=== PATIENT | male | born 1980 | race Caucasian/White ===

== ENCOUNTER 2017-12-23 12:01 | Inpatient (IN) | payer OTHER ==
[2017-12-23] MEDS: HEMOSTATIC MATRIX SYG ZFS
[2017-12-23] MEDS: LIDOCAINE 1%/EPI 30 ML INJ
[~2017-12-23 12:01] MED LIST: LIDOCAINE 2% (SDV) 5 ML INJ; ONDANSETRON 4 MG INJ
[2017-12-23] MEDS: KETOROLAC 30 MG INJ IV ×2 (12:37→20:21)
[2017-12-23] MEDS ORDERED: GELATIN SIZE 100 SPONGE (13:08)
[2017-12-23] MEDS ORDERED: PROPOFOL 20 ML (14:15)
[2017-12-23] MEDS ORDERED: CEFAZOLIN 1 GM INJ ×2 (14:18→16:23)
[2017-12-23] MEDS ORDERED: ROCURONIUM 50 MG INJ (14:18)
[2017-12-23] MEDS ORDERED: MEPERIDINE 25 MG INJ IV ×2 (14:30→18:30)
[2017-12-23] MEDS ORDERED: HYDROmorphONE 1 MG/5 ML IV SYRINGE IV ×3 (14:30)
[2017-12-23] MEDS ORDERED: FENTAnyl 50 MCG/ML VIAL IV ×6 (14:30→18:30)
[2017-12-23] MEDS ORDERED: ONDANSETRON 4 MG INJ IV ×2 (14:30→18:30)
[2017-12-23] MEDS ORDERED: EPHEDrine SULFATE 50 MG/5 ML SYG IV ×2 (14:30→18:30)
[2017-12-23] MEDS ORDERED: OXYCODONE/ACETAMINOPHEN (5/325) TAB PO ×2 (14:30)
[2017-12-23] MEDS ORDERED: MIDAZOLAM 1 MG/ML 2 ML INJ IV ×2 (14:30→18:30)
[2017-12-23] MEDS ORDERED: DIPHENHYDRAMINE 50 MG INJ IV ×2 (14:30→18:30)
[2017-12-23] MEDS ORDERED: hydrALAzine 20 MG INJ IV ×2 (14:30→18:30)
[2017-12-23] MEDS ORDERED: METOCLOPRAMIDE 10 MG INJ IV ×2 (14:30→18:30)
[2017-12-23] MEDS ORDERED: LABETALOL HCL 20MG INJ IV ×2 (14:30→18:30)
[2017-12-23] MEDS ORDERED: ALBUTEROL 0.083% (NEB) 2.5 MG/3 ML AMP HHN ×2 (14:30→18:30)
[2017-12-23] MEDS ORDERED: DEXAMETHASONE 4 MG/ML 1 ML INJ (16:15)
[2017-12-23] MEDS ORDERED: MEPERIDINE 100 MG INJ (16:22)
[2017-12-23] MEDS ORDERED: LABETALOL HCL 20MG INJ (16:36)
[2017-12-23] MEDS: THROMBIN 5000 UNIT VIAL (16:56)
[2017-12-23] MEDS: POLYMYXIN/BACITRACIN 1L IRRIG (16:56)
[2017-12-23] MEDS: HYDROmorphONE 0.5 MG/0.5 ML SYG IV ×3 (18:29→21:02)
[2017-12-23] MEDS ORDERED: NALOXONE (0.4 MG/ML) INJ IV (18:30)
[2017-12-23] MEDS ORDERED: KETOROLAC 30 MG INJ IV (18:30)
[2017-12-23] MEDS ORDERED: NACL 0.9% 3 ML SYG IV (18:30)
[2017-12-23] MEDS ORDERED: HYDROmorphONE 0.5 MG/0.5 ML SYG IV ×2 (18:30)
[2017-12-23] MEDS: LORAZEPAM 2 MG INJ IV (18:47)
[2017-12-23] MEDS: CEFAZOLIN 1 GM/50 ML (PMX) 50 ML IVPB ×2 (20:00→23:11)
[2017-12-23] MEDS: DOCUSATE SODIUM 100 MG CAP PO ×2 (20:22→21:02)
[2017-12-23] MEDS: NS + KCL 20 MEQ 1,000 ML IV (22:00)
[2017-12-23] MEDS: HYDROCODONE/APAP (5/325) TAB PO ×2 (23:10→23:11)
[2017-12-24] MEDS: HYDROmorphONE 0.5 MG/0.5 ML SYG IV ×4 (00:27→07:20)
[2017-12-24] MEDS: HYDROCODONE/APAP (5/325) TAB PO ×2 (03:24→06:56)
[2017-12-24 05:21] LABS: HEMATOCRIT 38.7 % (42.0-52.0); HEMOGLOBIN 13.2 g/dl (14.0-18.0)
[2017-12-24] MEDS: NS + KCL 20 MEQ 1,000 ML IV (05:21)
[2017-12-24] MEDS: CEFAZOLIN 1 GM/50 ML (PMX) 50 ML IVPB ×2 (05:21→12:43)
[2017-12-24 05:42] LABS: ANION GAP 20 (8-16); BLOOD UREA NITROGEN 10 mg/dl (7-20); CALCIUM 8.7 mg/dl (8.4-10.2); CARBON DIOXIDE 21 mmol/L (21-31); CHLORIDE 107 mmol/L (97-110); CREATININE 0.76 mg/dl (0.61-1.24); GLUCOSE 153 mg/dl (70-220); POTASSIUM 4.6 mmol/L (3.5-5.1); SODIUM 143 mmol/L (135-144)
[2017-12-24] MEDS: DOCUSATE SODIUM 100 MG CAP PO ×2 (09:19→20:58)
[2017-12-24] MEDS: CALCIUM CARBONATE 500 MG CHEW TAB PO ×3 (09:19→18:09)
[2017-12-24] MEDS: OXYCODONE/ACETAMINOPHEN (5/325) TAB PO ×3 (09:47→18:09)
[2017-12-24] MEDS: OXYMETAZOLINE 0.05% 15 ML NAS SPRAY NASAL ×2 (09:48→20:59)
[2017-12-24] MEDS: CARISOPRODOL 350 MG TAB PO ×2 (10:47→22:55)
[2017-12-24] MEDS: HYDROmorphONE 1 MG/ML SYG IV ×4 (11:15→22:56)
[2017-12-24] MEDS ORDERED: ALBUTEROL/IPRATROPIUM (NEB) 3 ML AMP HHN (13:30)
[2017-12-24] MEDS: LORAZEPAM 0.5 MG TAB PO (20:59)
[2017-12-25] MEDS: OXYCODONE/ACETAMINOPHEN (5/325) TAB PO ×6 (01:00→22:32)
[2017-12-25] MEDS: HYDROmorphONE 1 MG/ML SYG IV ×6 (03:05→23:22)
[2017-12-25 05:46] LABS: ADD MAN DIFF? NO; BASOPHIL # 0.1 10^3/ul (0.0-0.1); BASOPHILS % 0.4 % (0.0-2.0); EOSINOPHILS % 0.2 % (0.0-7.0); HEMATOCRIT 38.1 % (42.0-52.0); HEMOGLOBIN 12.6 g/dl (14.0-18.0); LYMPHOCYTES # 2.9 10^3/ul (0.8-2.9); MEAN CORPUSCULAR HEMOGLOBIN 27.9 pg (29.0-33.0); MEAN CORPUSCULAR HGB CONC 33.1 g/dl (32.0-37.0); MEAN CORPUSCULAR VOLUME 84.5 fl (82.0-101.0); MEAN PLATELET VOLUME 11.1 fl (7.4-10.4); MONOCYTE # 0.8 10^3/ul (0.3-0.9); MONOCYTES % 5.6 % (0.0-11.0); NEUTROPHIL # 9.9 10^3/ul (1.6-7.5); NEUTROPHILS % 72.4 % (39.0-77.0); PLATELET COUNT 222 10^3/UL (140-415); RED BLOOD COUNT 4.51 10^6/ul (4.70-6.10); RED CELL DISTRIBUTION WIDTH 13.9 % (11.5-14.5)
[2017-12-25 05:46] LABS: WHITE BLOOD COUNT 13.6 10^3/ul (4.8-10.8)
[2017-12-25 06:13] LABS: ANION GAP 13 (8-16); BLOOD UREA NITROGEN 13 mg/dl (7-20); CARBON DIOXIDE 29 mmol/L (21-31); CHLORIDE 104 mmol/L (97-110); CREATININE 0.88 mg/dl (0.61-1.24); GLUCOSE 107 mg/dl (70-220); POTASSIUM 4.8 mmol/L (3.5-5.1); SODIUM 141 mmol/L (135-144)
[2017-12-25] MEDS: CALCIUM CARBONATE 500 MG CHEW TAB PO ×3 (07:27→16:59)
[2017-12-25] MEDS: OXYMETAZOLINE 0.05% 15 ML NAS SPRAY NASAL ×2 (07:27→19:29)
[2017-12-25] MEDS: DOCUSATE SODIUM 100 MG CAP PO ×2 (08:51→19:29)
[2017-12-25] MEDS: CARISOPRODOL 350 MG TAB PO ×3 (08:51→23:22)
[2017-12-25] MEDS: LORAZEPAM 0.5 MG TAB PO ×2 (14:11→23:22)
[2017-12-26] MEDS: OXYCODONE/ACETAMINOPHEN (5/325) TAB PO ×5 (02:17→19:37)
[2017-12-26] MEDS: HYDROmorphONE 1 MG/ML SYG IV ×5 (03:27→20:40)
[2017-12-26 05:12] LABS: ADD MAN DIFF? NO
[2017-12-26 05:15] LABS: WHITE BLOOD COUNT 7.9 10^3/ul (4.8-10.8)
[2017-12-26 05:15] LABS: BASOPHIL # 0.1 10^3/ul (0.0-0.1); BASOPHILS % 0.8 % (0.0-2.0); EOSINOPHILS # 0.1 10^3/ul (0.0-0.5); EOSINOPHILS % 1.7 % (0.0-7.0); HEMATOCRIT 42.1 % (42.0-52.0); LYMPHOCYTES # 3.1 10^3/ul (0.8-2.9); LYMPHOCYTES % 39.3 % (15.0-51.0); MEAN CORPUSCULAR HEMOGLOBIN 28.2 pg (29.0-33.0); MEAN CORPUSCULAR HGB CONC 33.3 g/dl (32.0-37.0); MEAN CORPUSCULAR VOLUME 84.9 fl (82.0-101.0); MEAN PLATELET VOLUME 10.9 fl (7.4-10.4); MONOCYTE # 0.6 10^3/ul (0.3-0.9); MONOCYTES % 8.1 % (0.0-11.0); NEUTROPHIL # 3.9 10^3/ul (1.6-7.5); NEUTROPHILS % 49.8 % (39.0-77.0); PLATELET COUNT 226 10^3/UL (140-415); RED BLOOD COUNT 4.96 10^6/ul (4.70-6.10); RED CELL DISTRIBUTION WIDTH 13.3 % (11.5-14.5)
[2017-12-26 05:47] LABS: ANION GAP 8 (8-16); BLOOD UREA NITROGEN 14 mg/dl (7-20); CALCIUM 9.4 mg/dl (8.4-10.2); CARBON DIOXIDE 34 mmol/L (21-31); CHLORIDE 102 mmol/L (97-110); CREATININE 0.96 mg/dl (0.61-1.24); GLUCOSE 102 mg/dl (70-220); POTASSIUM 4.5 mmol/L (3.5-5.1); SODIUM 139 mmol/L (135-144)
[2017-12-26] MEDS: OXYMETAZOLINE 0.05% 15 ML NAS SPRAY NASAL ×3 (09:04→21:00)
[2017-12-26] MEDS: CALCIUM CARBONATE 500 MG CHEW TAB PO ×3 (09:05→20:40)
[2017-12-26] MEDS: DOCUSATE SODIUM 100 MG CAP PO ×2 (09:05→20:40)
[2017-12-26] MEDS: CARISOPRODOL 350 MG TAB PO ×2 (09:11→18:21)
[2017-12-26] MEDS ORDERED: ARTIFICIAL TEARS 15 ML OPH BOTH EYES (20:00)
[2017-12-26] MEDS: LORAZEPAM 0.5 MG TAB PO (22:46)
[2017-12-27] MEDS: OXYCODONE/ACETAMINOPHEN (5/325) TAB PO ×5 (00:12→20:52)
[2017-12-27] MEDS: HYDROmorphONE 1 MG/ML SYG IV ×6 (01:09→22:27)
[2017-12-27] MEDS: CARISOPRODOL 350 MG TAB PO ×3 (03:10→20:52)
[2017-12-27 05:43] LABS: ADD MAN DIFF? NO
[2017-12-27 05:51] LABS: BASOPHIL # 0.1 10^3/ul (0.0-0.1); BASOPHILS % 1.1 % (0.0-2.0); EOSINOPHILS # 0.3 10^3/ul (0.0-0.5); HEMATOCRIT 47.7 % (42.0-52.0); HEMOGLOBIN 16.2 g/dl (14.0-18.0); LYMPHOCYTES # 3.2 10^3/ul (0.8-2.9); LYMPHOCYTES % 45.4 % (15.0-51.0); MEAN CORPUSCULAR HEMOGLOBIN 28.4 pg (29.0-33.0); MEAN CORPUSCULAR VOLUME 83.7 fl (82.0-101.0); MEAN PLATELET VOLUME 10.8 fl (7.4-10.4); MONOCYTE # 0.6 10^3/ul (0.3-0.9); NEUTROPHIL # 2.8 10^3/ul (1.6-7.5); NEUTROPHILS % 40.5 % (39.0-77.0); PLATELET COUNT 259 10^3/UL (140-415); RED CELL DISTRIBUTION WIDTH 13.2 % (11.5-14.5)
[2017-12-27 06:08] LABS: ANION GAP 9 (8-16); BLOOD UREA NITROGEN 13 mg/dl (7-20); CALCIUM 9.6 mg/dl (8.4-10.2); CARBON DIOXIDE 34 mmol/L (21-31); CHLORIDE 100 mmol/L (97-110); CREATININE 1.07 mg/dl (0.61-1.24); GLUCOSE 113 mg/dl (70-220); POTASSIUM 5.1 mmol/L (3.5-5.1); SODIUM 138 mmol/L (135-144)
[2017-12-27] MEDS: LORAZEPAM 0.5 MG TAB PO (08:12)
[2017-12-27] MEDS: OXYMETAZOLINE 0.05% 15 ML NAS SPRAY NASAL ×2 (09:34→20:52)
[2017-12-27] MEDS: DOCUSATE SODIUM 100 MG CAP PO ×2 (09:34→20:52)
[2017-12-27] MEDS: CALCIUM CARBONATE 500 MG CHEW TAB PO ×3 (09:34→18:08)
[2017-12-27] MEDS ORDERED: OXYCODONE/ACETAMINOPHEN (10/325) TAB PO (18:00)
[2017-12-28] MEDS: OXYCODONE/ACETAMINOPHEN (5/325) TAB PO ×4 (01:33→15:20)
[2017-12-28 05:20] LABS: ADD MAN DIFF? NO
[2017-12-28 05:23] LABS: BASOPHIL # 0.1 10^3/ul (0.0-0.1); EOSINOPHILS # 0.4 10^3/ul (0.0-0.5); EOSINOPHILS % 4.7 % (0.0-7.0); HEMATOCRIT 48.7 % (42.0-52.0); HEMOGLOBIN 16.7 g/dl (14.0-18.0); LYMPHOCYTES # 3.3 10^3/ul (0.8-2.9); LYMPHOCYTES % 41.6 % (15.0-51.0); MEAN CORPUSCULAR HEMOGLOBIN 28.4 pg (29.0-33.0); MEAN CORPUSCULAR HGB CONC 34.3 g/dl (32.0-37.0); MEAN CORPUSCULAR VOLUME 82.7 fl (82.0-101.0); MEAN PLATELET VOLUME 10.5 fl (7.4-10.4); MONOCYTE # 0.7 10^3/ul (0.3-0.9); MONOCYTES % 8.3 % (0.0-11.0); NEUTROPHIL # 3.5 10^3/ul (1.6-7.5); NEUTROPHILS % 43.5 % (39.0-77.0); PLATELET COUNT 285 10^3/UL (140-415); RED BLOOD COUNT 5.89 10^6/ul (4.70-6.10); RED CELL DISTRIBUTION WIDTH 12.9 % (11.5-14.5)
[2017-12-28 05:55] LABS: ANION GAP 12 (8-16); BLOOD UREA NITROGEN 12 mg/dl (7-20); CALCIUM 9.7 mg/dl (8.4-10.2); CARBON DIOXIDE 34 mmol/L (21-31); CHLORIDE 100 mmol/L (97-110); CREATININE 1.03 mg/dl (0.61-1.24); GLUCOSE 112 mg/dl (70-220); POTASSIUM 5.1 mmol/L (3.5-5.1); SODIUM 141 mmol/L (135-144)
[2017-12-28] MEDS: CALCIUM CARBONATE 500 MG CHEW TAB PO ×2 (07:39→12:03)
[2017-12-28] MEDS: DOCUSATE SODIUM 100 MG CAP PO (07:40)
[2017-12-28] MEDS: HYDROmorphONE 1 MG/ML SYG IV ×2 (07:46→12:07)
[2017-12-28] MEDS: OXYMETAZOLINE 0.05% 15 ML NAS SPRAY NASAL (09:00)
[2017-12-28] MEDS: LORAZEPAM 0.5 MG TAB PO (09:04)
[2017-12-28] MEDS: CARISOPRODOL 350 MG TAB PO (13:27)
== END 2017-12-28 15:45 | disposition home health service (06) | DRG 473 ==
LOC: REC 12:01 → MS1 12-24 11:42 → ICU 18:15
PROC: 0RG20A0 Fusion of 2 or more Cervical Vertebral Joints with Interbody Fusion Device, Anterior Approach, Anterior Column, Open Approach (ICD-10-PCS; principal; 2017-12-23 14:00)
PROC: 0RB30ZZ Excision of Cervical Vertebral Disc, Open Approach (ICD-10-PCS; 2017-12-23 14:00)
DX: M50.022 Cervical disc disorder at C5-C6 level with myelopathy (principal); M47.892 Other spondylosis, cervical region; E66.9 Obesity, unspecified; Z68.30 Body mass index [BMI] 30.0-30.9, adult
CPT/HCPCS: 72020; 72125; 80048; 85014; 85018; 85025; 86850; 86900; 86901; 87081; 88304; 97116; 97161; 97530